=== PATIENT | female | born 1975 | race Caucasian/White ===

== ENCOUNTER → 2022-01-30 | Outpatient (CLI) | payer BC ==
[~2022-01-30] MED LIST: AC500T PO; ACHD5005 PO; ALPR.25T PO; ALPR.5T PO; ASP81CT PO; CALC-20 PO; DIPH1TAB49 PO; GBPN600T PO; HYDR-34 PO; IBP800T PO; LORA10TA7 PO; MELO15TA14 PO; NYST1000 PO; PANT40SU PO; PARO40TA3; TRM50T PO; VARE0.5T PO
--- NOTE | 2022-01-30 15:15 | Diagnostic Imaging Report ---
EXAMINATION: Lumbosacral spine, 2 or 3 views. HISTORY: Low back pain. COMPARISON: 12/22/2015. FINDINGS: There is normal height and alignment of the vertebral bodies. No fractures or subluxations are appreciated. The intervertebral spaces are preserved. The soft tissues are unremarkable. IMPRESSION: No acute process. Dictated by: Dictated on workstation # [id number]
--- NOTE | 2022-01-30 20:04 | Diagnostic Imaging Report ---
EXAMINATION: Thoracic spine radiographs, 3 views. COMPARISON: None. HISTORY: 46-year-old female, back pain. FINDINGS: The alignment of the thoracic spine is unremarkable. There are thoracic disc heights are well preserved. There is no identified fracture or compression deformity. IMPRESSION: Unremarkable radiographs of the thoracic spine. Dictated by: Dictated on workstation # [id number]
--- NOTE | 2022-01-31 10:01 | Diagnostic Imaging Report ---
Examination: Ultrasound pelvis Date: January 30, 2022. Indication: 46-year-old female, vaginal bleeding. Comparison: Pelvic ultrasound April 16, 2011. Technique: A sonogram of the pelvis was performed utilizing transabdominal and endovaginal approaches assessing cox-scale appearance and color Doppler flow. Findings: The uterus measures 7.1 x 5.2 x 4.9 cm. There are multiple heterogeneously hypoechoic uterine lesions most likely reflecting multiple uterine leiomyomas with example lesions measuring 2.2 x 1.6 x 1.7 cm in size and 2.3 x 2.3 x 2.7 cm in size. The endometrium measures 1.2 cm in diameter. The right ovary measures 5.0 cm x 2.5 cm x 2.8 cm. Left ovary is not seen. There is a simple appearing right ovarian cyst measuring 1.9 x 1.2 x 2.4 cm in size. There is a heterogeneously hypoechoic right ovarian lesion measuring 2.9 x 2.6 x 2.7 cm in size. There is blood flow to the right ovary No free pelvic fluid is demonstrated. Impression: 1. Multiple intrauterine lesions most likely reflecting leiomyomas with the largest measuring up to 2.7 cm in size. 2. Endometrial thickness of 1.2 cm. 3. Simple right ovarian cyst and heterogeneously hypoechoic right ovarian lesion measuring up to maximally 2.9 cm in size which may potentially reflect a hemorrhagic cyst. Followup pelvic ultrasound in 6 weeks to assess for physiologic etiology as recommended. 4. No free pelvic fluid. Dictated by: Dictated on workstation # [id number]
--- NOTE | 2022-01-31 13:03 | Diagnostic Imaging Report ---
INDICATION: Routine screening. COMPARISON: 04/18/2009. TECHNIQUE: 2D and 3D bilateral screening mammography was performed with CAD. FINDINGS: Both breasts are heterogeneously dense, limiting the sensitivity of mammography. The right breast is unremarkable. The left breast does contain two circumscribed densities. A density in the posterior left breast just medial to the nipple line and inferior is noted. This is approximately 5-6 cm from the nipple and likely at approximately the 7 o'clock location. There is a smaller circumscribed nodule in the retroareolar left breast slightly medial and inferior. These may represent cysts but further evaluation with ultrasound is recommended. No spiculated mass or malignant-appearing microcalcifications are seen. The axillae are unremarkable. IMPRESSION: Circumscribed densities in the left breast. Further evaluation with ultrasound is recommended. ACR BI-RADS Category 0: Incomplete. (Needs additional imaging evaluation). Result letter will be mailed to the patient. Note: At least 10% of breast cancer is not imaged by mammography. Dictated by: Dictated on workstation # [id number]
== END ==
LOC: RAD 14:30
PROVIDERS: ATTEND Obstetrics & Gynecology
DX: Z12.31 Encounter for screening mammogram for malignant neoplasm of breast (principal); M54.50 Low back pain, unspecified; N85.9 Noninflammatory disorder of uterus, unspecified; N83.201 Unspecified ovarian cyst, right side; M54.6 Pain in thoracic spine; R93.89 Abnormal findings on diagnostic imaging of other specified body structures
CPT/HCPCS: 72072; 72100; 76830; 76856; 77063; 77067

== ENCOUNTER → 2022-02-09 | Outpatient (CLI) | payer BC ==
--- NOTE | 2022-02-09 16:03 | Diagnostic Imaging Report ---
INDICATION: Left breast densities. EXAMINATION: Study was performed for further evaluation. COMPARISON: Correlation is made with recent screening mammogram from 01/30/2022. FINDINGS: Sonographic interrogation of the left breast does show a benign-appearing cyst at the 7:00 location, 5 cm from the nipple, measuring 7 mm x 8 mm x 4 mm. This corresponds to the more posterior lesion slightly medial to the nipple line on mammogram. There is a small simple cyst in the retroareolar 7:00 location of the left breast measuring 5 mm x 6 mm x 3 mm. This corresponds to the density of noted in the retroareolar left breast on the mammogram. No solid breast mass is identified. IMPRESSION: Simple cyst in left breast corresponding to the mammographic densities. The patient may return to routine annual screening mammography. ACR BI-RADS Category 2: Benign findings. Result letter will be mailed to the patient. Note: At least 10% of breast cancer is not imaged by mammography. Dictated by: Dictated on workstation # [id number]
== END ==
LOC: RAD 14:15
PROVIDERS: ATTEND Obstetrics & Gynecology
DX: N60.02 Solitary cyst of left breast (principal)
CPT/HCPCS: 76642